=== PATIENT | female | born 1990 | race African-American/Black ===

== ENCOUNTER 2017-08-02 19:00 | Emergency (ER) | payer SELFPAY ==
[2017-08-02 19:02] VITALS: BP 150/78; PULSE 56; RESP 16; TEMP 98.5; O2SAT 100
[2017-08-02] MEDS ORDERED: NORC5TAB PO (21:03)
[2017-08-02] MEDS ORDERED: SODIUM CHLOR 0.9% 1000 ML INJ 1,000 ML IV SCH (21:23)
[2017-08-02] MEDS ORDERED: SODIUM CHLORIDE 0.9% FLUSH 10 ML FLUSH IV FLUSH PRN (21:30)
[2017-08-02] MEDS ORDERED: KETOROLAC TROMETHAMINE 30 MG/ML (IVP) VIAL IV PUSH ONE (21:30)
--- NOTE | 2017-08-02 21:30 | PD ---
HPI Chief Complaint: Abdominal Pain Time Seen by Provider: 21:14 Travel History International Travel<30 days: No Contact w/Intl Traveler<30days: No Traveled to known affect area: No History of Present Illness HPI 26-year-old female here for evaluation of painful menses. Her menstrual period started yesterday. She reports history of menorrhagia and painful periods. She has been on Depo-Provera as well as oral contraceptives in the past without any change in her symptoms. She took an Aleve yesterday and reports that she was started on Brooten yesterday by a physician at [facility]. Her symptoms continue today. She has gone through 4 pads today. She denies . No vaginal discharge other than bleeding. Currently the pain is mild. She describes the pain as cramping/menstrual-like. No urinary symptoms. No fevers. PFSH Past Medical History Medical History: Denies Significant Hx ?: Not LMP: 08/01/17 : 0 Past Surgical History Surgical History: No Previous Surgery Social History Alcohol Use: No Tobacco Use: No Substance Use: No Allergies-Medications (Allergen,Severity, Reaction): Coded Allergies: No Known Allergies (Verified Adverse Reaction, Unknown, 08/02/17) Reported Meds & Prescriptions Reported Meds & Active Scripts Active Reported Brooten (Hydrocodone-Acetaminophen) 5 Mg-325 Mg Tab 1 Tab PO Q6H PRN Review of Systems Except as stated in HPI: all other systems reviewed are Neg Physical Exam Narrative GENERAL: Well-developed, well-nourished, comfortable, no apparent distress. SKIN: Focused skin assessment warm/dry. No rash. No pallor. HEAD: Atraumatic. Normocephalic. EYES: Pupils equal and round. No scleral icterus. No injection or drainage. ENT: Mucous membranes pink and moist. NECK: Trachea midline. No JVD. CARDIOVASCULAR: Regular rate and rhythm. RESPIRATORY: No accessory muscle use. Clear to auscultation. Breath sounds equal bilaterally. GASTROINTESTINAL: Abdomen soft, non-tender, nondistended. MUSCULOSKELETAL: No obvious deformities. No clubbing. No cyanosis. No edema. NEUROLOGICAL: Awake and alert. No obvious cranial nerve deficits. Motor grossly within normal limits. Normal speech. PSYCHIATRIC: Appropriate mood and affect; insight and judgment normal. Data Data Last Documented VS Vital Signs Date Time Temp Pulse Resp B/P (MAP) Pulse Ox O2 Delivery O2 Flow Rate FiO2 08/02/17 19:02 98.5 56 16 150/78 (102) 100 Room Air Orders Orders Complete Blood Count With Diff (08/02/17:23) Comprehensive Metabolic Panel (08/02/17 21:23) Prothrombin Time / Inr (Pt) (08/02/17 21:23) Act Partial Throm Time (Ptt) (08/02/17:23) Urinalysis - C+S If Indicated (08/02/17:23) Iv Access Insert/Monitor (08/02/17:23) Ecg Monitoring (08/02/17:23) Oximetry (08/02/17:23) Sodium Chlor 0.9% 1000 Ml Inj (Ns 1000 M (08/02/17:23) Sodium Chloride 0.9% Flush (Ns Flush) (08/02/17 21:30) Ed Urine Pregnancytest Poc (08/02/17:23) Ketorolac Inj (Toradol Inj) (08/02/17 21:30) Us Pelvis Comp W Doppler (08/02/17:23) Labs Laboratory Tests Test 08/02/17 21:45 White Blood Count 5.6 TH/MM3 Red Blood Count 4.45 MIL/MM3 Hemoglobin 12.8 GM/DL Hematocrit 38.0 % Mean Corpuscular Volume 85.4 FL Mean Corpuscular Hemoglobin 28.7 PG Mean Corpuscular Hemoglobin Concent 33.5 % Red Cell Distribution Width 13.1 % Platelet Count 210 TH/MM3 Mean Platelet Volume 8.2 FL Neutrophils (%) (Auto) 48.0 % Lymphocytes (%) (Auto) 40.1 % Monocytes (%) (Auto) 7.4 % Eosinophils (%) (Auto) 3.5 % Basophils (%) (Auto) 1.0 % Neutrophils # (Auto) 2.7 TH/MM3 Lymphocytes # (Auto) 2.2 TH/MM3 Monocytes # (Auto) 0.4 TH/MM3 Eosinophils # (Auto) 0.2 TH/MM3 Basophils # (Auto) 0.1 TH/MM3 CBC Comment DIFF FINAL Differential Comment Prothrombin Time 10.5 SEC Prothromb Time International Ratio 1.0 RATIO Activated Partial Thromboplast Time 27.8 SEC Urine Color YELLOW Urine Turbidity CLEAR Urine pH 6.5 Urine Specific [place] 1.023 Urine Protein 100 mg/dL Urine Glucose (UA) TRACE mg/dL Urine Ketones NEG mg/dL Urine Occult Blood LARGE Urine Nitrite NEG Urine Bilirubin NEG Urine Urobilinogen 4.0 MG/DL Urine Leukocyte Esterase TRACE Urine RBC /hpf Urine WBC 4 /hpf Urine Squamous Epithelial Cells 1 /hpf Urine Bacteria RARE /hpf Urine Mucus MOD /lpf Microscopic Urinalysis Comment CULT NOT INDICATED Blood Urea Nitrogen 10 MG/DL Creatinine 0.81 MG/DL Random Glucose 96 MG/DL Total Protein 7.4 GM/DL Albumin 3.7 GM/DL Calcium Level 8.1 MG/DL Alkaline Phosphatase 64 U/L Aspartate Amino Transf (AST/SGOT) 11 U/L Alanine Aminotransferase (ALT/SGPT) 8 U/L Total Bilirubin 0.2 MG/DL Sodium Level 140 MEQ/L Potassium Level 3.7 MEQ/L Chloride Level 106 MEQ/L Carbon Dioxide Level 27.6 MEQ/L Anion Gap 6 MEQ/L Estimat Glomerular Filtration Rate 104 ML/MIN [facility] Medical Decision Making Medical Screen Exam Complete: Yes Emergency Medical Condition: Yes Differential Diagnosis Menorrhagia, menstrual cramps, ovarian cyst, endometriosis, , ectopic Narrative Course Vital signs show heart rate 56, blood pressure 150/78, pulse ox 100% on room air , oral temp of 98.5F. CBC is unremarkable. CMP is unremarkable. UA shows 100 protein, large occult blood, trace leukocyte esterase, innumerable rbc's, 4 wbc's, rare bacteria, negative for Trichomonas, not suggestive of UTI. Pelvic ultrasound: CONCLUSION: Unremarkable exam. The patient was made aware of all findings. She is resting comfortably. She is stable for discharge home with outpatient follow-up with a compliance representative dealer this week. She was advised on when to return to the emergency department. Ibuprofen for pain. She also has some Brooten at home that was prescribed her yesterday. She verbalizes understanding and agreement with plan. Diagnosis Primary Impression: Dysmenorrhea Referrals: [facility] 3 days Additional Instructions: Follow-up with a compliance representative dealer this week. Return to the emergency department for worsening symptoms or any other concerns. Disposition: 01 DISCHARGE HOME Condition: Stable Ulises Zaldivar MD Aug 02, 2017 21:30
[2017-08-02 21:59] LABS: AUTOMATED NEUTROPHIL # 2.7 TH/MM3 (1.8-7.7); BASOPHIL # 0.1 TH/MM3 (0-0.2); EOSINOPHIL # 0.2 TH/MM3 (0-0.4); EOSINOPHIL % 3.5 % (0.0-4.0); HEMOGLOBIN 12.8 GM/DL (11.6-15.3); LYMPH % 40.1 % (9.0-44.0); LYMPHOCYTE # 2.2 TH/MM3 (1.0-4.8); MEAN CELL VOLUME 85.4 FL (80.0-100.0); MEAN CORPUSCULAR HEMOGLOBIN 28.7 PG (27.0-34.0); MEAN CORPUSCULAR HGB CONC 33.5 % (32.0-36.0); MEAN PLATELET VOLUME 8.2 FL (7.0-11.0); MONO % 7.4 % (0.0-8.0); MONOCYTE # 0.4 TH/MM3 (0-0.9); PLATELET COUNT 210 TH/MM3 (150-450); RED BLOOD COUNT 4.45 MIL/MM3 (4.00-5.30); RED CELL DISTRIBUTION WIDTH 13.1 % (11.6-17.2); WHITE BLOOD COUNT 5.6 TH/MM3 (4.0-11.0)
[2017-08-02 22:08] LABS: BACTERIA, URINE RARE /hpf; BILIRUBIN, URINE NEG (NEG); BLOOD, URINE LARGE (NEG); GLUCOSE,URINE TRACE mg/dL (NEG); KETONE, URINE NEG (NEG); MUCUS URINE MOD /lpf (OCC); NITRITE,URINE NEG (NEG); PH, URINE 6.5 (5.0-8.5); SQUAMOUS EPITHELIAL CELL URINE 1 /hpf (0-5); URINE COLOR YELLOW (YELLW/STRAW); URINE LEUKOCYTE ESTERASE TRACE (NEG)
[2017-08-02 22:10] LABS: PROTHROMBIN TIME - PATIENT 10.5 SEC (9.8-11.6)
[2017-08-02 22:20] LABS: ALBUMIN 3.7 GM/DL (3.4-5.0); ALT (GPT) 8 U/L (10-53); AST (GOT) 11 U/L (15-37); BICARBONATE 27.6 MEQ/L (21.0-32.0); BLOOD UREA NITROGEN 10 MG/DL (7-18); CALCIUM 8.1 MG/DL (8.5-10.1); CHLORIDE 106 MEQ/L (98-107); CREATININE 0.81 MG/DL (0.50-1.00); GLOMERULAR FILTRATION RATE 104 ML/MIN (>89); GLUCOSE,RANDOM 96 MG/DL (74-106); SODIUM (NA) 140 MEQ/L (136-145)
[2017-08-02 22:22] LABS: ALKALINE PHOSPHATASE 64 U/L (45-117); TOTAL BILIRUBIN ADULT 0.2 MG/DL (0.2-1.0); TOTAL PROTEIN 7.4 GM/DL (6.4-8.2)
--- NOTE | 2017-08-02 23:11 | RADRPT ---
EXAM DATE/TIME: 08/02/2017 22:22 [place] COMPARISON: No previous studies available for comparison. INDICATIONS : Pelvic pain. MEDICAL HISTORY : . . SURGICAL HISTORY : None. ENCOUNTER: Initial ACUITY: 1 day PAIN SCORE: 7/10 LOCATION: Bilateral pelvis MEASUREMENTS: UTERUS: 7.5 x 3.8 x 2.9 cm ENDOMETRIAL STRIPE: 6 mm RIGHT OVARY: 3.2 x 2.0 x 1.7 cm LEFT OVARY: 2.6 x 2.3 x 1.6 cm FINDINGS: UTERUS: The myometrium has homogeneous echotexture without mass. RIGHT OVARY: Ovary contains no mass or significant cystic lesion. LEFT OVARY: Ovary contains no mass or significant cystic lesion. MISCELLANEOUS: No free fluid. CONCLUSION: Unremarkable exam. Prashant Naylor MD on August 02, 2017 at 23:08 Board Certified Radiologist. This report was verified electronically.
== END 2017-08-02 23:51 | disposition home or self-care (01) ==
LOC: NEPD 19:00
DX: N94.6 Dysmenorrhea, unspecified (principal); R10.2 Pelvic and perineal pain
CPT/HCPCS: 76856; 80053; 81001; 85025; 85610; 85730; 93975; 96374; 99284; J1885; J7030